=== PATIENT | female | born 1960 | race Caucasian/White ===

== ENCOUNTER 2021-09-20 13:47 | Emergency (ER) | payer OTHER ==
[2021-09-20] MEDS ORDERED: CEPHALEXIN500 MG PO (14:35)
== END 2021-09-20 14:50 | disposition home or self-care (01) ==
LOC: FER 13:47
DX: S61.411A Laceration without foreign body of right hand, initial encounter (principal); I10 Essential (primary) hypertension; E78.5 Hyperlipidemia, unspecified; F17.210 Nicotine dependence, cigarettes, uncomplicated; Z23 Encounter for immunization; Z79.899 Other long term (current) drug therapy; W45.8XXA Other foreign body or object entering through skin, initial encounter; Y92.89 Other specified places as the place of occurrence of the external cause; Y99.0 Civilian activity done for income or pay
CPT/HCPCS: 90471; 90715